=== PATIENT | male | born 1995 | race Caucasian/White ===

== ENCOUNTER 2019-02-09 03:01 | Emergency (ER) | payer OTHER ==
[2019-02-09] MEDS: RANITIDINE 150 MG TAB PO (04:17)
[2019-02-09] MEDS: DEXAMETHASONE 10 MG/ML 1 ML INJ IM (04:18)
== END 2019-02-09 05:15 | disposition home or self-care (01) ==
LOC: FTE 03:01
DX: L50.0 Allergic urticaria (principal)
CPT/HCPCS: 96372; 99284-25; J1100